=== PATIENT | male | born 1965 | race Caucasian/White ===

== ENCOUNTER 2017-01-18 15:27 | Emergency (ER) | payer SELFPAY ==
[~2017-01-18] VITALS: Ht 165.1 cm; Wt 50.6 kg
[2017-01-18 15:29] VITALS: TEMP 36.7; Ht 165.1 cm; Wt 50.6 kg
[2017-01-18] MEDS ORDERED: HYDROCODONE/ACETAMOPHEN 5/325MG TAB PO STA (15:58)
--- NOTE | 2017-01-18 16:21 | EMERGENCY ROOM VISIT NOTE ---
History First contact with patient: 15:35 Chief Complaint: KNEEPAIN Stated Complaint: LEFT KNEE PAIN FROM A FALL - WEDNESDAY NIGHT History of Present Illness The patient is a 51 year old male who presents to the Emergency Room via private vehicle with complaints of "left knee pain from a fall, Wednesday night". 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 He then twisted, and fell to the ground. He states that most of the twisting occurred at the location of the left knee. He notes the swelling has been progressing as well as the pain. He points to the medial aspect of his left knee as a location of pain that he rates as a 10/10. Pain is worse with extension of his left knee. Pain is also worse with weightbearing. There is minimal pain at rest. He feels that the knee is slightly warm to the touch. He denies any nausea, vomiting, headaches. He did feel that he initially felt feverish and had chills the day that he twisted the knee but these have since subsided. He cannot take ibuprofen secondary to stomach problems. He has taken Tylenol which has not provided any relief. He has also tried ice and hot showers of which have not provided relief. He denies any left hip or ankle pain. Review of Systems A complete 6-point Review of Systems was discussed with the patient, with pertinent positives and negatives listed in the History of Present Illness. All remaining Review of Systems questions can be considered negative unless otherwise specified. Past Medical/Surgical History Foot surgery 1984 Family History Diabetes, high blood pressure. Social History Smoking Status: Current Every Day Smoker Marital Status: single Occupation Status: unemployed Current/Historical Medications Scheduled PRN Hydrocodone/Acetaminophen 5MG/325MG (Sussex 5MG/325MG), 1 TABLET PO Q4H PRN for Pain Allergies Coded Allergies: No Known Allergies (Unverified , 01/18/17) Physical Exam Vital Signs Date Time Temp Pulse Resp B/P (MAP) Pulse Ox O2 Delivery O2 Flow Rate FiO2 01/18/17 17:00 64 18 128/90 97 Room Air 01/18/17 15:29 36.7 74 20 144/90 97 Room Air Physical Exam VITAL SIGNS - Vital signs and nursing notes were reviewed. Patient is afebrile , hypertensive at 144/90, non-tachycardic and saturating well on room air 97%. GENERAL -51-year-old male appearing his stated age who is in no acute distress. Communicates well with provider and answers questions appropriately. SKIN - Without rashes. The skin overlying the left knee is slightly erythematous, and the knee is not edematous. Temperature is symmetric between the knees to palpation. HEAD - NC/AT. EXTREMITIES - No clubbing or peripheral cyanosis. No pretibial edema present. He is neurovascularly intact in the left lower extremity. No tenderness to palpation over the knee joint. There is tenderness elicited with full extension of the knee actively and passively. No tenderness elicited with flexion or varus or valgus stress. The knee joint is the same temperature upon palpation as the other knee joint. Slight erythema noted to the medial aspect. No edema noted. +5/5 strength noted in UE/LE bilaterally. Medical Decision & Procedures ER Provider Diagnostic Interpretation: LEFT KNEE 3 VIEWS CLINICAL HISTORY: Left knee pain status post injury COMPARISON: None. DISCUSSION: No acute fractures are visualized. There is a trace joint effusion. There are mild degenerative changes with mild lateral joint compartment spurring. IMPRESSION: Mild degenerative change. No acute fractures. Electronically signed by: Mitch Iqbal M.D. 01/18/2017 4:26 PM Dictated Date/Time: 01/18/2017 4:26 PM Medications Administered Medications (Trade) Dose Ordered Sig/Claritza Route Start Time Stop Time Status Last Admin Dose Admin Acetaminophen/ Hydrocodone Bitart (Sussex 5/325 Tab) 1 tab NOW STAT PO 01/18/17 15:58 01/18/17 15:59 DC 01/18/17 16:29 1 TAB Medical Decision Patient was seen and evaluated as above. After obtaining a thorough history and physical examination radiograph was obtained of the right knee. Patient would like something for pain therefore was provided with Sussex. Ice packs were provided. The radiograph results as above. Patient presents to us today with pain in the right left status post twisting injury after getting his left knee stuck in the rail road tracks. I do not suspect septic joint. Patient presentation is consistent with that with knee trauma. No fracture was noted to the radiograph. Official results as above. The patient will be referred to orthopedics for further evaluation and management. Knee immobilizer was provided here. He noted he had his own crutches that he would use. He is to remain nonweightbearing until other pain free, or follows up with orthopedics. Short-term prescription for Sussex will be provided. He was educated upon worrisome symptoms which to return, had questions prior to discharge, and was discharged home in good condition. I suspect his knee pain is likely secondary to ligamentous injury. In the evaluation and treatment of this patient, the following differential diagnoses were considered: Patellar Fracture, Tibial Plateau Fracture, Distal Femur Fracture, ACL Injury, PCL Injury, Collateral Ligament Injury, Pes Anserine Bursitis, septic joint, Ma[place]uve Fracture. [facility] Drug Monitoring Program Search Results: patient reviewed within database, no issues identified Impression Primary Impression: Knee pain Departure Information Dispostion Home / Self-Care Condition GOOD Prescriptions Hydrocodone/Acetaminophen 5MG/325MG (Sussex 5MG/325MG) Tab 1 TABLET PO Q4H Y for Pain, #12 TAB For Initial Treatment Prov: Arie Martinez PA-C 01/18/17 Referrals No Doctor, Assigned (PCP) Hood Mead MD Patient Instructions My [facility] Additional Instructions You have been treated in the Emergency Department for Knee Pain. You have received pain medicine in the emergency department which impairs your ability to operate a vehicle. It is illegal for you to drive after receiving these medicines. You have been prescribed NORCO to be used for pain control. This is a narcotic medication. You cannot drive or consume alcohol while on this medicine. This medicine should only be used for pain that cannot be controlled with over-the- counter pain medicines. DO NOT TAKE WITH TYLENOL!! For pain control, you can use the following [id number] medicines (if >12 yo): - Regular strength (325mg/tab) Tylenol (acetaminophen) 2 tabs every 4-6 hours as needed. Do not exceed 12 tablets in a 24 hour period. Avoid taking more than 3 grams 3000 mg) of Tylenol per day. This includes any other sources of acetaminophen you may take on a regular basis. - Regular strength (200 mg/tab) Advil (ibuprofen) 1-2 tabs every 4-6 hours as needed. Do not exceed a dose of 3200 mg per day. If this is a recent injury (<24 hrs), ice can be applied to the area of pain for the first 3 days to help decrease pain and inflammation. Ice massages can be performed by freezing water in a paper cup, peeling back the cup to expose the ice and then massaging over the affected area. You have been provided the number for an Orthopaedic Surgeon. You should call this number as soon as possible to establish a follow-up visit from today's Emergency Department visit. (Dr. Mead) Your blood pressure was found to be 144/90, this is elevated, therefore it is recommended to follow-up with your family doctor for further evaluation and management of potential high blood pressure. Keep the knee brace in place until cleared by Orthopedics. Use the crutches you have been provided to keep ALL weight off of the knee until weight bearing is tolerable. Return to the Emergency Department if your current symptoms worsen despite treatment course outlined above. Problem Qualifiers Primary Impression: Knee pain Chronicity: acute Laterality: left Qualified Codes: M25.562 - Pain in left knee
--- NOTE | 2017-01-18 16:28 | DIAGNOSTIC IMAGING REPORT ---
LEFT KNEE 3 VIEWS CLINICAL HISTORY: Left knee pain status post injury COMPARISON: None. DISCUSSION: No acute fractures are visualized. There is a trace joint effusion. There are mild degenerative changes with mild lateral joint compartment spurring. IMPRESSION: Mild degenerative change. No acute fractures. Electronically signed by: Mitch Iqbal M.D. 01/18/2017 4:26 PM Dictated Date/Time: 01/18/2017 4:26 PM
[2017-01-18] MEDS ORDERED: HYDR-5688 PO (16:54)
[2017-01-18 17:00] VITALS: BP 128/90; PULSE 64; O2SAT 97
== END 2017-01-18 17:00 | disposition home or self-care (01) ==
LOC: C.EDB 15:29 → C.EDD 17:00
DX: M25.562 Pain in left knee (principal); W23.1XXA Caught, crushed, jammed, or pinched between stationary objects, initial encounter; Y92.89 Other specified places as the place of occurrence of the external cause; Z83.3 Family history of diabetes mellitus; Z82.49 Family history of ischemic heart disease and other diseases of the circulatory system; F17.210 Nicotine dependence, cigarettes, uncomplicated

== ENCOUNTER 2024-11-23 09:55 | Observation (INO) ==
--- NOTE | 2024-11-23 10:20 | Emergency Department Note ---
Impression & Plan Numbness on right side, Abnormal brain CT, Hx of Lyme disease, Leukocytosis ED Provider Note NAME: OSEI GEORGE AGE: 59 SEX: M : 1965 ARRIVES VIA: Walk-In INFORMANT: [Patient] ED PROVIDER(S): [Kulwant Jones MD] CHIEF COMPLAINT: Illness HISTORY OF PRESENT ILLNESS: The patient is a 59-year-old male who states that 6 days ago, he was arguing with his girlfriend and suddenly, his entire right side from his scalp to his toes went numb. He states that the numbness has never resolved. The patient did go to the [facility] and had an MRI, he was told that things were okay. The patient states that his symptoms have persisted. Only his fingertips and toes are with normal sensation. The rest of the right side is numb. There is no difficulty with functionality, he does not feel weak in 1 arm or 1 leg. There has been no speech slur, no headache. No cough or cold or congestion. No history of previous CVA, he has in the past been diagnosed with Lyme disease and [place] spotted fever, he was treated with doxycycline. PMHx/PSHx/Social Hx: See Below PHYSICAL EXAM: GENERAL: Patient is in no acute distress. HEENT: No acute trauma, normocephalic atraumatic, mucous membranes moist, no nasal congestion. NECK: No stridor, no adenopathy, no meningismus, trachea is midline. LUNGS: Clear to auscultation bilaterally, no wheeze, no rhonchi, breath sounds equal. HEART: Without murmurs gallops or rubs, regular rate and rhythm. ABDOMEN: Soft, nontender, no peritonitis. EXTREMITIES: No cyanosis, full range of motion of all the joints without pain or difficulty. NEUROLOGIC: Oriented x 3, no acute motor deficit. No extremity drift, no speech slur, no facial droop, no cerebellar dysfunction. SKIN: No jaundice, no diaphoresis. DIFFERENTIAL DIAGNOSIS: Stroke, electrolyte imbalance, intracranial bleeding, tickborne disease, among others. EMERGENCY DEPARTMENT PROCEDURES: MEDICAL DECISION MAKING: There is a mild leukocytosis, this could be consistent with infection or the stress of his presentation. There is a normal hemoglobin and platelet count. No renal failure or significant electrolyte abnormality. No concerning liver enzyme elevation. Total CK was not elevated making rhabdomyolysis unlikely. The patient appeared to be in a euthyroid state. ECG shows a sinus rhythm, no ischemia. Cardiac enzyme testing x 1 is not consistent with acute cardiac injury. Urinalysis does not show findings of infection. Urine drug screen was positive for marijuana. Alcohol level was undetectable. Anaplasmosis and Babesia screens were negative, the send out testing is pending. Preliminary Lyme disease testing was positive however, the secondary test showed findings of previous Lyme disease, not active Lyme disease. Chest x-ray did not show pneumonia or CHF. Brain CT suggested a potential old or subacute infarct. CT angio of the head and neck were performed, there was no significant clot or significant stenosis. On exam, the patient had no focal motor deficits, no speech slur. He complained of numbness to essentially the entire right side of his body. Because of the patient's complaints and because of the abnormal brain CT, an MRI of the brain was ordered with and without contrast. The MRI does show a left- sided subacute thalamic infarct which I suspect is responsible for his right sided numbness. Given his presentation, given the imaging results, further workup for CVA is indicated. A hospital stay is warranted. The patient was given a nicotine patch at his request. In addition, he was given 4 baby aspirin orally. The patient is clearly not a candidate for TNK, his stroke likely occurred a week ago. I did speak with the patient, I spoke with case management, the on-call hospitalist was consulted. At the request of the hospitalist, I spoke briefly with on-call neurology. The neurology phone consult advice was forwarded to the hospitalist. Prior/Outside records/notes reviewed: None ECG per my interpretation: Indication was possible stroke. The ECG shows a normal sinus rhythm with a rate of 80. There is no acute ST elevation. There is a potential old septal infarct. There is a potential old lateral infarct. No PVCs. The QTc is 419. Continuous Cardiac Monitoring per my interpretation: An order was placed for continuous cardiac monitoring. The monitor shows a rate of 94 with normal sinus rhythm. Imaging/x-ray results per my interpretation: Chest x-ray does not show pneumonia, CHF or cardiomegaly. Chronic Medical/Social conditions affecting care: None Care/Management discussed with: Case management, the on-call hospitalist. Neurology on-call-Dr. Panchal. Level of care consideration(s): After review of the information above and other included data: --I believe the patient requires escalation of care to admission Critical Care Note: I have personally spent 49 minutes of critical care time in the direct management of this patient. This includes bedside care, interpretation of diagnostic studies, and testing, discussion with consultants, patient, and family members, and other required patient management activities. This 49 minutes is in excess of all separately billable procedures. DISPOSITION: Admission Past Med/Surg History Problem List (Updated 11/23/24 @ 14:25 by Kulwant Jones MD) Leukocytosis (Acute) Hx of Lyme disease (Acute) Abnormal brain CT (Acute) Numbness on right side (Acute) Knee pain (Acute) Medical History Hx of Lyme disease Social History Smoking Status: Current every day smoker Tobacco Type: Cigarettes Preferred Language: Kyrgyz Feels Safe at Home: Yes Allergies Allergies Allergy/AdvReac Type Severity Reaction Status Date / Time No Known Allergies Allergy Unverified 08/29/20 22:27 Home Meds Home Medications Medication Instructions Recorded Confirmed Vitamin D3 1 cap PO DAILY 11/23/24 11/23/24 albuterol sulfate 90 mcg/actuation 2 puff inhalation Q4 PRN sob 11/23/24 11/23/24 aerosol inhaler aspirin 81 mg tablet,delayed 81 mg PO DAILY 11/23/24 11/23/24 release fluticasone 250 mcg-salmeterol 50 1 inh inhalation BID 11/23/24 11/23/24 mcg/dose blistr powdr for inhalation Results & Data (ED) Vital Signs Vital Signs - 24 hr 11/23/24 09:59 11/23/24 10:05 11/23/24 10:31 Temperature 36.7 C Temperature Source Oral Pulse Rate 94 H 67 Pulse Rate from SpO2 Sensor Respiratory Rate 20 Respiratory Effort / Characteristics Non-Labored Spontaneous Respiratory Depth Normal Respiratory Pattern Regular Blood Pressure 162/82 H Blood Pressure Mean 108 Pulse Oximetry 98 97 Oxygen Delivery Method Room Air Room Air Sepsis Recent Fever Within 48 Hours No Sepsis New/Unexplained Change in Mental Status N/A Sepsis Action Taken by Nursing No Action Required 11/23/24 10:39 11/23/24 11:03 11/23/24 12:21 Temperature Temperature Source Pulse Rate 69 67 65 Pulse Rate from SpO2 Sensor 70 66 65 Respiratory Rate 15 19 16 Respiratory Effort / Characteristics Respiratory Depth Respiratory Pattern Blood Pressure 143/83 H 124/84 153/95 H Blood Pressure Mean 103 97 114 Pulse Oximetry 98 96 98 Oxygen Delivery Method Sepsis Recent Fever Within 48 Hours Sepsis New/Unexplained Change in Mental Status Sepsis Action Taken by Nursing 11/23/24 12:36 Temperature Temperature Source Pulse Rate 83 Pulse Rate from SpO2 Sensor 86 Respiratory Rate 14 Respiratory Effort / Characteristics Respiratory Depth Respiratory Pattern Blood Pressure 153/92 H Blood Pressure Mean 112 Pulse Oximetry 99 Oxygen Delivery Method Sepsis Recent Fever Within 48 Hours Sepsis New/Unexplained Change in Mental Status Sepsis Action Taken by [facility] Medications Current Medication List: was personally reviewed by me Laboratory Data Attestation: I reviewed the patient's lab results. 11/23/24 10:25 11/23/24 10:25 Lab Results 11/23/24 11/23/24 Range/Units 10:25 11:22 WBC 11.69 H (4.8-10.8) K/ul RBC 4.76 (4.70-6.10) M/uL Hgb 15.8 (14.0-18.0) g/dl Hct 44.2 (42.0-52.0) % MCV 92.9 (80.0-100.0) fL MCH 33.2 (25.0-34.0) pg MCHC 35.7 (32.0-36.0) g/dL RDW Std Deviation 43.9 (36.4-46.3) fL RDW Coeff of Abbey 12.9 (11.5-14.5) % Plt Count 214 (130-400) K/uL MPV 10.4 (9.4-12.4) fL Immature Gran % (Auto) 0.6 % Neut % (Auto) 76.7 % Lymph % (Auto) 13.8 % Brewster % (Auto) 6.3 % Eos % (Auto) 1.9 % Baso % (Auto) 0.7 % Neut # (Auto) 8.97 H (1.40-6.50) K/uL Lymph # (Auto) 1.61 (1.20-3.40) K/uL Brewster # (Auto) 0.74 H (0.11-0.59) K/uL Eos # (Auto) 0.22 (0.00-0.50) K/uL Baso # (Auto) 0.08 (0.00-0.20) K/uL Immature Gran # (Auto) 0.07 (0.01-0.20) K/uL Sodium 140 (136-145) mmol/L Potassium 3.9 (3.5-5.1) mmol/L Chloride 109 H (98-107) mmol/L Carbon Dioxide 26 (21-32) mmol/L Anion Gap 5 (3-11) BUN 17 (6-23) mg/dl Creatinine 0.80 (0.6-1.4) mg/dl Est Cr Clr Drug Dosing 83.7 ml/min eGFR 101.95 BUN/Creatinine Ratio 21.3 H (10-20) Glucose 126 H (70-99(Fasting)) mg/dl Calcium 9.2 (8.6-10.3) mg/dl Magnesium 1.8 (1.7-2.4) mg/dl Total Bilirubin 0.4 (0.2-1.0) mg/dl AST 30 (13-39) U/L ALT 37 (7-52) U/L Alkaline Phosphatase 87 (34-104) U/L Total Creatine Kinase 48 (30-223) U/L Troponin I High Sens 3.6 (0-20) pg/ml Total Protein 6.6 (6.0-8.3) gm/dl Albumin 4.1 (3.4-5.0) gm/dl Globulin 2.5 (2.5-4.0) gm/dl Albumin/Globulin Ratio 1.6 (0.9-2) TSH 0.681 (0.300-4.500) uIu/ml Urine Color Yellow Urine Appearance Clear (Clear) Urine pH 6.0 (4.5-7.5) Ur Specific Tyler 1.005 (1.000-1.030) Urine Protein Negative (Negative) Urine Glucose (UA) Negative (Negative) Urine Ketones Negative (Negative) Urine Blood Negative (Negative) Urine Nitrite Negative (Negative) Urine Bilirubin Negative (Negative) Urine Urobilinogen Negative (Negative) Ur Leukocyte Esterase Negative (Negative) Urine Opiates Screen Neg (Neg) Ur Methadone, Qual Neg (Neg) Urine Fentanyl Screen Neg (Neg) Urine Barbiturates Neg (Neg) Ur Phencyclidine (PCP) Neg (Neg) U Amphetamin/Meth Scrn Neg (Neg) MDMA (Ecstasy) Screen Neg (Neg) U Benzodiazepines Scrn Neg (Neg) Ur Cocaine Metabolite Neg (Neg) U Marijuana (THC) Screen Pos H (Neg) Ethyl Alcohol mg/dL < 10.0 (<10.0) mg/dl Anaplasma Smear See Comment Babesia Smear See Comment Lyme Disease Screen Positive H (Negative) Lyme Tier 2 IgG Confirm Positive H (Negative) Lyme Tier 2 IgM Confirm Negative (Negative) Administered Medications Discontinued Medications Gadobutrol (Gadobutrol 65ml Vial) 6 ml IV ONCE ONE Stop: 11/23/24 14:18 Last Admin: 11/23/24 14:18 Dose: 6 ml Documented By: CARA Ioversol (Optiray 320 125ml) 119 ml IV ONCE ONE Stop: 11/23/24 11:39 Last Admin: 11/23/24 11:38 Dose: 119 ml Documented By: Imaging Data Radiologist's Impression: Chest X-Ray 11/23/24 10:05 XR chest 1V portable CLINICAL HISTORY: weakness COMPARISON STUDY: 1 4424.1 FINDINGS: Heart size and pulmonary vasculature are normal. No effusion, consolidation, or pneumothorax. There are old bilateral rib fractures. IMPRESSION: No acute findings. ACT 112: Negative or not required by law. Electronically signed by: Jamir Mcgee M.D. 11/23/2024 10:[address] 11/23/24 10:16 CT head/brain wo con CLINICAL HISTORY: stroke. TECHNIQUE: Multiple axial CT images of the head were obtained without contrast. A dose lowering technique was utilized adhering to the principles of ALARA. COMPARISON: None FINDINGS: No intracranial hemorrhage seen. No mass effect, midline shift, or hydrocephalus. There is a small nonspecific area of hypodensity at the left thalamus, likely infarction of uncertain chronicity. No skull fracture seen. There is a mucous retention cyst in the right maxillary sinus and there is mild paranasal sinus mucosal thickening. IMPRESSION: 1. No intracranial hemorrhage seen. 2. Likely small infarction at the left thalamus of uncertain chronicity, possibly old. ACT 112: Negative or not required by law. The above report was generated using voice recognition software. It may contain grammatical, syntax or spelling errors. Electronically signed by: Jamir Mcgee M.D. 11/23/2024 11:47 AM Head CTA 11/23/24 10:16 CTA ANGIOGRAPHY OF THE HEAD CLINICAL HISTORY: Stroke. COMPARISON STUDY: No previous studies for comparison. TECHNIQUE: Helical axial images of the head were obtained following uneventful intravenous administration of 119 cc of Optiray. Sagittal and coronal reconstructions were viewed as well as maximal intensity projections on an independent 3-D workstation. Automated exposure control was utilized for the study. A dose lowering technique was utilized adhering to the principles of ALARA. FINDINGS: Please note that the head CT will be reported separately. No acute intracranial hemorrhage, midline shift or mass effect is present. Ventricular system is unremarkable. A 9 mm hypodense focus within the left thalamus is noted as well as a hypodensity within the adjacent portion of the internal capsule. The bilateral M1, M2, A1 and A2 segments are patent. There is no intracranial aneurysm. The posterior circulation is intact. The left vertebral artery is dominant. Basilar arteries are patent. The posterior cerebral arteries are patent. IMPRESSION: 1. No large vessel occlusion. No intracranial aneurysm. 2. Age indeterminate 9 mm infarct within the left thalamus. Subtle hypodensity within the adjacent posterior limb of the left internal capsule which is also age-indeterminate. ACT 112: Negative or not required by law. Electronically signed by: Manpreet Whitman M.D. 11/23/2024 11:57 AM Neck CTA 11/23/24 10:16 CT angio neck with con CLINICAL HISTORY: 59 years-old Male with stroke. Acute stroke like symptoms COMPARISON STUDY: CT abdomen same day TECHNIQUE: Following the IV administration of 119 mL of Optiray, CT angiogram of the neck was performed from the aortic arch to the skull base. Images are reviewed in the axial, sagittal, and coronal planes. 3-D MIPS images are created and assessed. IV contrast was administered without complication. All measurements were calculated based on NASCET criteria. A dose lowering technique was utilized adhering to the principles of ALARA. CT DOSE: 1070.48 mGy.cm FINDINGS: Atherosclerosis of the thoracic aortic arch. There is mild stenosis at the origin of the left subclavian artery. The innominate and right subclavian arteries are patent. Mild narrowing of the distal common carotid artery secondary to atheromatous plaque. There is atherosclerotic plaque of the right greater than left carotid bulbs causing less than 50% stenosis. The internal carotid arteries are patent. Dominant left vertebral artery is widely patent. The developmentally diminutive right vertebral artery is also patent. The lung apices appear to be clear. No pneumothorax. Unremarkable soft tissues. 2.5 cm right maxillary sinus polyp. There is mild mucosal thickening of the paranasal sinuses. No change of the cervical spine. No acute fracture. Mild superior endplate compression T4 is likely chronic. IMPRESSION:CTA of the neck demonstrates no aneurysm, dissection, high-grade stenosis or arterial occlusion. ACT 112: Negative or not required by law. The above report was generated using voice recognition software. It may contain grammatical, syntax or spelling errors. Electronically signed by: Florencio Krishnamurthy M.D. 11/23/2024 12:12 PM Brain MRI 11/23/24 12:26 MR brain wo/w con HISTORY: 59 years-old Male poss stroke acute stroke like symptoms with right- sided numbness COMPARISON: Head CT of same day TECHNIQUE: Multiple and multisequence MRI of the brain was obtained with and without IV contrast FINDINGS: Confirmation of the acute to subacute appearing subcentimeter lacunar infarct in the left thalamus measuring approximately 7 x 9 x 6 mm which demonstrates increased signal on the diffusion weighted images and intermediate signal on the ADC map. No acute or subacute territorial infarct. Midline structures appear unremarkable. Partially empty sella. Degenerative changes of the cervical spine. There are a few punctate scattered foci of T2/FLAIR prolongation within the white matter, likely representing underlying mild chronic microvascular ischemic disease. There are a few small subcentimeter benign subcortical cysts noted within the anterior right temporal lobe. No abnormal enhancement. No acute intracranial hemorrhage, midline shift, abnormal extra-axial collection, hydrocephalus or intra-axial mass. Study is mildly motion degraded. Cerebral venous sinuses and major arterial flow voids appear patent. Skull, orbits and soft tissues are unremarkable. Trace mastoid effusions. Mild mucosal thickening of the paranasal sinuses. 2.8 cm focus of polypoid mucosal thickening within the right maxillary sinus. IMPRESSION: 1. Confirmation of the acute to subacute appearing subcentimeter lacunar infarct within the left thalamus. 2. No abnormal enhancement. ACT 112: Negative or not required by law. The above report was generated using voice recognition software. It may contain grammatical, syntax or spelling errors. Electronically signed by: Florencio Krishnamurthy M.D. 11/23/2024 2:50 PM Discharge Plan Visit Data Chief Complaint: Illness Stated Complaint: NUMBNESS ON ENTIRE R SIDE, HIGH BP ED Provider: Kulwant Jones Discharge Problem: Numbness on right side, Abnormal brain CT, Hx of Lyme disease, Leukocytosis Patient Disposition: Admitted As Inpatient Condition: Fair Forms Stand Alone Forms: My [facility] [employer] Prescriptions Prescriptions: No Action fluticasone propion-salmeterol 250-50 mcg/dose blister with device 1 inh INHALATION BID aspirin [Aspir-81] 81 mg Tablet,Delayed Release (Dr/Ec) 81 mg PO DAILY albuterol sulfate 90 mcg/actuation HFA aerosol inhaler 2 puff INHALATION Q4 PRN (Reason: sob) Vitamin D3 1 cap PO DAILY Rx Instructions: otc unknown dose Referrals Referrals: PCP,NO [Physician] - Discharge Problem: Leukocytosis Qualifiers: Leukocytosis type: unspecified Qualified Code(s): D72.829 - Elevated white blood cell count, unspecified
--- NOTE | 2024-11-23 10:50 | XRay Report ---
XR chest 1V portable CLINICAL HISTORY: weakness COMPARISON STUDY: 1 8740.1 FINDINGS: Heart size and pulmonary vasculature are normal. No effusion, consolidation, or pneumothora x. There are old bilateral rib fractures. IMPRESSION: No acute findings. ACT 112: Negative or not required by law. Electronically signed by: Jamir Mcgee M.D. 11/23/2024 10:49 AM
[2024-11-23 10:53] LABS: Basophils # (auto) 0.08 K/uL (0.00-0.20); Basophils % (auto) 0.7 %; Eosinophils # (auto) 0.22 K/uL (0.00-0.50); Eosinophils % (auto) 1.9 %; Hematocrit (blood only) 44.2 % (42.0-52.0); Hemoglobin 15.8 g/dl (14.0-18.0); Immature Granulocytes # (auto) 0.07 K/uL (0.01-0.20); Immature Granulocytes % (auto) 0.6 %; Lymphocytes # (auto) 1.61 K/uL (1.20-3.40); Lymphocytes % (auto) 13.8 %; Mean Corpuscular Hemoglobin 33.2 pg (25.0-34.0); Mean Corpuscular Hgb Conc 35.7 g/dL (32.0-36.0); Mean Corpuscular Volume 92.9 fL (80.0-100.0); Mean Platelet Volume 10.4 fL (9.4-12.4); Monocytes # (auto) 0.74 K/uL (0.11-0.59); Monocytes % (auto) 6.3 %; Neutrophils # (auto) 8.97 K/uL (1.40-6.50); Neutrophils % (auto) 76.7 %; Platelet Count 214 K/uL (130-400); RDW Coefficient of Variation 12.9 % (11.5-14.5); RDW Standard Deviation 43.9 fL (36.4-46.3); Red Blood Count 4.76 M/uL (4.70-6.10); White Blood Count 11.69 K/ul (4.8-10.8)
--- NOTE | 2024-11-23 10:57 | Electrocardiogram Report ---
Test Reason : Blood Pressure : */* mmHG Vent. Rate : 80 BPM Atrial Rate : 80 BPM P-R Int : 150 ms QRS Dur : 86 ms QT Int : 364 ms P-R-T Axes : 79 46 63 degrees QTcB Int : 419 ms Normal sinus rhythm Minimal voltage criteria for LVH, may be normal variant Septal infarct , age undetermined Abnormal ECG No previous ECGs available Confirmed by Michael Mckeon ([id number]) on 11/23/2024 10:57:34 AM Referred By: Confirmed By: Michael Mckeon
[2024-11-23 11:16] LABS: Albumin Globulin Ratio 1.6 (0.9-2); Albumin Level 4.1 gm/dl (3.4-5.0); BUN Creatinine Ratio 21.3 (10-20); Bilirubin,Total 0.4 mg/dl (0.2-1.0); Calcium 9.2 mg/dl (8.6-10.3); Creatinine Clr Calc Pharmacy 83.7 ml/min; Globulin 2.5 gm/dl (2.5-4.0); Magnesium 1.8 mg/dl (1.7-2.4); Potassium 3.9 mmol/L (3.5-5.1); Total Protein 6.6 gm/dl (6.0-8.3)
[2024-11-23 11:20] LABS: Troponin I High Sensitivity 3.6 pg/ml (0-20)
[2024-11-23 11:30] LABS: Thyroid Stimulating Hormone 0.681 uIu/ml (0.300-4.500)
[2024-11-23 11:33] LABS: Appearance Urine Clear (Clear); Bilirubin Urine Negative (Negative); Blood Urine Negative (Negative); Color Urine Yellow; Glucose Urine UA Negative (Negative); Ketones Urine Negative (Negative); Leukocyte Esterase Urine Negative (Negative); Nitrite Urine Negative (Negative); Protein Urine Negative (Negative); Specific Gravity Urine 1.005 (1.000-1.030); Urobilinogen Urine Negative (Negative)
[2024-11-23] MEDS: OPTIRAY 320 125ml IV ONE (11:38)
--- NOTE | 2024-11-23 11:49 | CT Scan Report ---
CT head/brain wo con CLINICAL HISTORY: stroke. TECHNIQUE: Multiple axial CT images of the head were obtained without contrast. A dose lowering tech nique was utilized adhering to the principles of ALARA. COMPARISON: None FINDINGS: No intracranial hemorrhage seen. No mass effect, midline shift, or hydrocephalus. There is a small nonspecific area of hypodensity at the left thalamus, likely infarction of uncertain chronici ty. No skull fracture seen. There is a mucous retention cyst in the right maxillary sinus and there i s mild paranasal sinus mucosal thickening. IMPRESSION: 1. No intracranial hemorrhage seen. 2. Likely small infarction at the left thalamus of uncertain chronicity, possibly old. ACT 112: Negative or not required by law. The above report was generated using voice recognition software. It may contain grammatical, syntax o r spelling errors. Electronically signed by: Jamir Mcgee M.D. 11/23/2024 11:47 AM
[2024-11-23 11:57] LABS: Lyme Screen Rflx Confirmation Positive (Negative)
--- NOTE | 2024-11-23 11:58 | CT Scan Report ---
CTA ANGIOGRAPHY OF THE HEAD CLINICAL HISTORY: Stroke. COMPARISON STUDY: No previous studies for comparison. TECHNIQUE: Helical axial images of the head were obtained following uneventful intravenous administr ation of 119 cc of Optiray. Sagittal and coronal reconstructions were viewed as well as maximal inten sity projections on an independent 3-D workstation. Automated exposure control was utilized for the study. A dose lowering technique was utilized adhering to the principles of ALARA. FINDINGS: Please note that the head CT will be reported separately. No acute intracranial hemorrhage, midline shift or mass effect is present. Ventricular system is unremarkable. A 9 mm hypodense focus within the left thalamus is noted as well as a hypodensity within the adjacent portion of the interna l capsule. The bilateral M1, M2, A1 and A2 segments are patent. There is no intracranial aneurysm. Th e posterior circulation is intact. The left vertebral artery is dominant. Basilar arteries are patent . The posterior cerebral arteries are patent. IMPRESSION: 1. No large vessel occlusion. No intracranial aneurysm. 2. Age indeterminate 9 mm infarct within the left thalamus. Subtle hypodensity within the adjacent po sterior limb of the left internal capsule which is also age-indeterminate. ACT 112: Negative or not required by law. Electronically signed by: Manpreet Whitman M.D. 11/23/2024 11:57 AM
--- NOTE | 2024-11-23 12:14 | CT Scan Report ---
CT angio neck with con CLINICAL HISTORY: 59 years-old Male with stroke. Acute stroke like symptoms COMPARISON STUDY: CT abdomen same day TECHNIQUE: Following the IV administration of 119 mL of Optiray, CT angiogram of the neck was perform ed from the aortic arch to the skull base. Images are reviewed in the axial, sagittal, and coronal pl anes. 3-D MIPS images are created and assessed. IV contrast was administered without complication. Al l measurements were calculated based on NASCET criteria. A dose lowering technique was utilized adhe ring to the principles of ALARA. CT DOSE: 1070.48 mGy.cm FINDINGS: Atherosclerosis of the thoracic aortic arch. There is mild stenosis at the origin of the left subclav rea artery. The innominate and right subclavian arteries are patent. Mild narrowing of the distal com mon carotid artery secondary to atheromatous plaque. There is atherosclerotic plaque of the right gre ater than left carotid bulbs causing less than 50% stenosis. The internal carotid arteries are patent . Dominant left vertebral artery is widely patent. The developmentally diminutive right vertebral art katelynn is also patent. The lung apices appear to be clear. No pneumothorax. Unremarkable soft tissues. 2.5 cm right maxillar y sinus polyp. There is mild mucosal thickening of the paranasal sinuses. No change of the cervical s pine. No acute fracture. Mild superior endplate compression T4 is likely chronic. IMPRESSION:CTA of the neck demonstrates no aneurysm, dissection, high-grade stenosis or arterial occl usion. ACT 112: Negative or not required by law. The above report was generated using voice recognition software. It may contain grammatical, syntax o r spelling errors. Electronically signed by: Florencio Krishnamurthy M.D. 11/23/2024 12:12 PM
[2024-11-23 12:17] LABS: Amphetamines+Metham, Urine Neg (Neg); Barbiturates, Urine Neg (Neg); Benzodiazepine, Urine Neg (Neg); Cocaine, Urine Neg (Neg); Fentanyl, Urine Neg (Neg); MDMA (Ecstacy), Urine Neg (Neg); Marijuana, Urine Pos (Neg); Methadone, Urine Neg (Neg); Opiate, Urine Neg (Neg); Phencyclidine, Urine Neg (Neg)
[2024-11-23 12:40] LABS: Lyme Ab IgG 2nd Tier Confirm Positive (Negative); Lyme Ab IgM 2nd Tier Confirm Negative (Negative)
[2024-11-23] MEDS: GADOBUTROL 65ML VIAL IV ONE (14:18)
--- NOTE | 2024-11-23 14:52 | Magnetic Resonance Report ---
MR brain wo/w con HISTORY: 59 years-old Male poss stroke acute stroke like symptoms with right-sided numbness COMPARISON: Head CT of same day TECHNIQUE: Multiple and multisequence MRI of the brain was obtained with and without IV contrast FINDINGS: Confirmation of the acute to subacute appearing subcentimeter lacunar infarct in the left thalamus me asuring approximately 7 x 9 x 6 mm which demonstrates increased signal on the diffusion weighted imag es and intermediate signal on the ADC map. No acute or subacute territorial infarct. Midline structur es appear unremarkable. Partially empty sella. Degenerative changes of the cervical spine. There are a few punctate scattered foci of T2/FLAIR prolongation within the white matter, likely representing u nderlying mild chronic microvascular ischemic disease. There are a few small subcentimeter benign sub cortical cysts noted within the anterior right temporal lobe. No abnormal enhancement. No acute intracranial hemorrhage, midline shift, abnormal extra-axial collection, hydrocephalus or in tra-axial mass. Study is mildly motion degraded. Cerebral venous sinuses and major arterial flow void s appear patent. Skull, orbits and soft tissues are unremarkable. Trace mastoid effusions. Mild mucos al thickening of the paranasal sinuses. 2.8 cm focus of polypoid mucosal thickening within the right maxillary sinus. IMPRESSION: 1. Confirmation of the acute to subacute appearing subcentimeter lacunar infarct within the left thal amus. 2. No abnormal enhancement. ACT 112: Negative or not required by law. The above report was generated using voice recognition software. It may contain grammatical, syntax o r spelling errors. Electronically signed by: Florencio Krishnamurthy M.D. 11/23/2024 2:50 PM
[2024-11-23] MEDS ORDERED: PHARMACIST DISCHARGE MED REC CONSULT PRN (15:25)
[2024-11-23] MEDS ORDERED: ACETAMINOPHEN 325 MG TAB PO PRN (15:29)
[2024-11-23] MEDS: NICOTINE 21 MG/24 HR TDSY TD STA (15:43)
[2024-11-23] MEDS: ASPIRIN CHEW 324 MG PO STA (15:43)
[2024-11-23] MEDS: CLOPIDOGREL BISULFATE 300 MG TAB PO ONE (15:43)
--- NOTE | 2024-11-23 16:12 | History & Physical Report ---
Date of Service November 23, 2024 Assessment & Plan (1) Acute stroke due to ischemia: Plan: Assessment: 1. Acute to subacute stroke. His symptoms have been approximately 1 week. Already showing up on CAT scan. This is probably a subacute left thalamic infarct experienced approximately 1 week ago. Neurology consulted. Dual antiplatelet therapy in the form of Plavix and aspirin. Echocardiogram. MRI is already completed. PT and OT consultation. High-dose statin therapy in the form of Lipitor. Telemetry monitoring to monitor for paroxysmal A-fib. He has no history of A-fib. Stroke protocol. 2. Positive Lyme screen. The patient was diagnosed with Lyme disease and [place] spotted fever per him in September of this year. He was treated with a 21- day course of doxycycline. He completed that course. I spoke with infectious disease Dr. Villar -at this point she is recommending not ongoing treatment as the IgM can stay positive for quite some time. 3. Tobacco abuse in the form of smoking cigarettes. No nicotine patch due to possible vasoconstriction with a acute stroke. 4. Alcoholism. 6-8 beers per day. Last drink was last evening. He has gone through withdrawal before with "the shakes" but never had seizures. We have ordered alcohol withdrawal protocol. He prefers not to take Ativan unless absolutely necessary as it "knocks him out". 5. COPD without acute exacerbation. Continue home inhalers. 6. History of fatty liver probably secondary to chronic alcohol use/abuse. 7. Recreational marijuana use. Plan: As discussed above. Please refer to orders for further planning. History of Present Illness Chief Complaint: Paresthesias right side of body x 1 week. Primary Care Provider: Ruthy Abarca This is a 59-year-old male who apparently was having a verbal altercation with his significant other approximately a week ago. He had a sudden acute onset of paresthesias and numbness of the right side of his body including upper and lower extremity. Per the patient he presented to [facility] emergency department. Per the patient he initially reported an MRI once his mother presented to the ER today it was concluded that the patient probably had a CT of the head a week ago at the [facility] which was negative. According to the patient he "got pissed off and left". He states that they told him they could not find his problem. We have requested to obtain records from the [facility] to determine what was done and what the recommendations were precisely. At any rate, the patient symptomatology has not worsened and has not improved. Therefore he is presented to the [facility] ER for further evaluation and treatment today. CTAs of the head and neck were negative for critical stenosis or thrombosis. CT of the brain was suspicious for a subacute infarct in the left thalamus. MRI of the brain in the ER confirmed a subacute infarct. The patient received aspirin in the ER. We requested consultation with neurology. They are recommending dual antiplatelet therapy which has been initiated with Plavix and aspirin as well as high-dose statin therapy. Will obtain a echocardiogram. Lipid panel. PT and OT consultation and neurology consultation. Patient will be on the stroke protocol. In addition the patient tested positive in September for Lyme disease and [place] spotted fever. Per the patient he took a 21-day course of doxycycline. The patient was retested for Lyme disease in the ER today his Lyme screen was positive with a positive IgM. I have contacted infectious disease on-call and spoke with Dr. Villar -at this time she is not recommending any further antimicrobial therapy for possible Lyme disease as the IgM can stay positive for quite some time. In addition the nicotine patch was initially ordered for the patient. The ER with discussed with the patient that nicotine is a vasoconstrictor and would be relatively contraindicated with a subacute stroke that could possibly make things worse and we will discontinue that and the patient voices understanding. In addition the patient drinks 6-8 beers per day. His last drink was last evening. His alcohol level today is 0. He states that he has "had the shakes" before when not drinking but never had any withdrawal seizures. We have ordered alcohol withdrawal protocol. He states that Ativan "knocks him out" and prefers not to take that. Past medical history: COPD, Lyme disease, [place] spotted fever, fatty liver disease. Past surgical history: Bunionectomy, tonsillectomy adenoidectomy, tooth extraction. Social history: The patient lives with his girlfriend. Smokes a pack and a half of cigarettes per day. Drinks 6-8 beers per day last drink was last evening. He also uses recreational marijuana. He is self-employed as a executor of estate. Family medical history: Positive for cerebrovascular disease. Allergies Allergy/AdvReac Type Severity Reaction Status Date / Time No Known Allergies Allergy Unverified 08/29/20 22:27 Home Medications Medication Instructions Recorded Confirmed Type Vitamin D3 1 cap PO DAILY 11/23/24 11/23/24 History albuterol sulfate 90 mcg/actuation 2 puff inhalation Q4 PRN sob 11/23/24 11/23/24 History aerosol inhaler aspirin 81 mg tablet,delayed 81 mg PO DAILY 11/23/24 11/23/24 History release fluticasone 250 mcg-salmeterol 50 1 inh inhalation BID 11/23/24 11/23/24 History mcg/dose blistr powdr for inhalation Past Med/Surg History Problem List (Updated 11/23/24 @ 16:09 by Arnie Dsouza, PhD, DO) Acute stroke due to ischemia Leukocytosis (Acute) Hx of Lyme disease (Acute) Abnormal brain CT (Acute) Numbness on right side (Acute) Knee pain (Acute) Medical History Hx of Lyme disease Social History Smoking Status: Current every day smoker Tobacco Type: Cigarettes Preferred Language: Bur[place]ian Feels Safe at Home: Yes Review of Systems Review of Systems: A 10 point review of system was obtained and unless otherwise stated here or in history of present illness are negative and noncontributory to chief complaint. Physical Exam Physical Exam: In General: In general 59-year-old male is alert and oriented x 3 at the time of my exam. He is accompanied by his mother who is a retired registered nurse. He did patricia permission for his mother to be present during my interview and exam. HEENT: Normocephalic atraumatic pupils are equal round and reactive to light bilaterally. No scleral icterus no conjunctival injection external auditory canals are patent septum is in the midline nose is without discharge oral mucosa is pink and moist without lesion. His tongue protrudes in the midline. He is edentulous. NECK: Supple no rigidity no lymphadenopathy no thyromegaly no carotid bruits no JVD no masses. HEART: Regular rate and rhythm I do not appreciate any ectopy or rub. No murmur. LUNGS: Clear to auscultation bilaterally and anteriorly with no evidence of adventitious sounds/wheezes rales or rhonchi. ABDOMEN: Soft nontender, no rebound, no peritoneal signs, positive bowel sounds, no appreciable organomegaly. EXTREMITIES: Intact, no peripheral cyanosis, clubbing or edema. Strength is 5 out of 5 in extremities x4, no pathological reflexes. No pronator drift. No cerebellar sign. He does have decreased sensation of the right upper and lower extremities compared to the contralateral limbs. NEUROLOGICAL: Other than the decrease sensation as described above, cranial nerves II through XII are grossly intact with no focal deficit elicited upon examination. No tremor. Results & Data Results & Data Vital Signs (Past 12 Hours) Vital Signs Temp Pulse Resp BP Pulse Ox O2 Del Method 11/23/24 14:54 70 15 158/84 H 98 11/23/24 12:36 83 14 153/92 H 99 11/23/24 12:21 65 16 153/95 H 98 11/23/24 11:03 67 19 124/84 96 11/23/24 10:39 69 15 143/83 H 98 11/23/24 10:31 67 11/23/24 10:05 97 Room Air 11/23/24 09:59 36.7 C 94 H 20 162/82 H 98 Room Air Code Status & VTE Plan Code Status Full code. I personally discussed with patient today VTE Prophylaxis Plan VTE Prophylaxis will be ordered: Yes PG Care Time/CCT Total # of Minutes Spent Total Time Spent with Patient: Total time spent is greater than 50% in coordination of care (as documented) at patient's floor/unit and/or counseling patient: Coding Level of Care Code 22082 INT INP/OBS CARE 3/75MIN Diagnoses Acute stroke due to ischemia I63.9
[2024-11-23] MEDS: FOLIC ACID 1 MG TAB PO STA (16:36)
[2024-11-23] MEDS: THIAMINE HCL 100 MG TAB PO STA (16:36)
[2024-11-23] MEDS: ATORVASTATIN 40 MG TAB PO STA (17:09)
--- NOTE | 2024-11-23 17:27 | Neurology Consultation ---
Date of Consultation November 23, 2024 Assessment & Plan (1) Acute stroke due to ischemia: Plan 59-year-old male presenting with an acute ischemic left thalamic infarct, presenting with right sided numbness, mild clumsiness for the right hand, symptoms began acutely [address] angiography of the head and neck unremarkable. Patient has a longstanding history of tobacco abuse, more than 1 pack/day for many years. He is currently modestly hypertensive in the context of his acute stroke. No prior history of stroke or TIA. Would recommend dual antiplatelet therapy, aspirin 81 mg/day, clopidogrel 75 mg/day for 3 weeks, followed by transition to aspirin monotherapy. Agree with atorvastatin as ordered. Goal LDL 70 or less. Blood pressure management per stroke protocol. May require an antihypertensive at time of discharge. Tobacco cessation counseling. Patient will need to follow-up with his PCP for ongoing management of cardiovascular risk factors. Would obtain an echocardiogram with bubble study. Consider obtaining 30-day mobile cardiac outpatient telemetry. However, patient's stroke does not appear to be consistent with a cardioembolic etiology. Consultations with PT/OT. Please call with any questions. History of Present Illness Reason for Consultation: stroke Requesting Physician: Meet History of Present Illness The patient is a 59-year-old male with a chief complaint of right-sided numbness that began acutely 6 days ago while having an argument with his significant other. The numbness involves the right side of the face, right upper and lower limbs. There is a subtle feeling of clumsiness for the right hand, no gross weakness for the right arm or leg. No significant change in speech, no associated vision disturbance, no difficulty swallowing. He was assessed at the [facility] emergency department before deciding to present to [facility] for further evaluation. He denies any previous history of stroke or TIA. He is a long-term smoker, more than 1 pack of cigarettes per day. He also endorses heavy alcohol consumption, at least 6-8 drinks per day. He has had several DUIs and does not drive. I evaluated the patient with his mother present at bedside. A CT of the head revealed an age-indeterminate left thalamic infarct. A CTA of the head and neck were unremarkable. Brain MRI reveals an acute left thalamic infarct. Allergies Allergy/AdvReac Type Severity Reaction Status Date / Time No Known Allergies Allergy Unverified 08/29/20 22:27 Home Medications Medication Instructions Recorded Confirmed Type Vitamin D3 1 cap PO DAILY 11/23/24 11/23/24 History albuterol sulfate 90 mcg/actuation 2 puff inhalation Q4 PRN sob 11/23/24 11/23/24 History aerosol inhaler aspirin 81 mg tablet,delayed 81 mg PO DAILY 11/23/24 11/23/24 History release fluticasone 250 mcg-salmeterol 50 1 inh inhalation BID 11/23/24 11/23/24 History mcg/dose blistr powdr for inhalation Patient History Medical History Hx of Lyme disease Social History Smoking Status: Current every day smoker Tobacco Type: Cigarettes Preferred Language: Mongolian Feels Safe at Home: Yes Review of Systems Constitutional: no fever and no chills Eyes: no blind spots and no diplopia Ear, Nose, Mouth, Throat: no hearing loss Respiratory: + dyspnea Cardiovascular: no chest pain and no palpitations Gastrointestinal: no nausea and no vomiting Genitourinary: no dysuria Musculoskeletal: no myalgia Integumentary: no rash and no lesions Neurologic: + localized weakness and + loss of sensa tion; no gait abnormality, no headache(s), no abnormal speech, no confusion and no memory loss Psychiatric: no depression and no anxiety Exam (Neuro) Constitutional: well developed and well nourished; no acute distress Eyes: normal visual mackenzie by confrontation, PERRL and EOM intact bilaterally; no nystagmus Neurologic: Oriented to:: Person, Place and Time Memory: Short Term Intact and Remote Intact Attention: Span Intact and Concentration Intact Speech Fluency: negative Dysarthria or Dysfluency Speech Aphasia: negative Aphasia Fund of Knowledge: Current Events, Past History and Vocabulary Cranial Nerves: Normal II, III, IV, , V, VIII, IX, X, XI and XII; Abnorm VII (mild right lower facial droop) Motor Strength: Normal Lower Extremities, Normal Upper Extremities and Pronator Drift Laterality: Right Motor Tone: Normal Lower Extremities and Normal Upper Extremities Muscle Bulk/Involuntary Movements: No Involuntary Movements; negative Muscle Atrophy Sensation: Proprioception Intact; negative Light Touch Intact, Pain/Temperature Intact or Vibration Intact Coordination: Finger-Nose Abnormal Laterality: Right; negative Dysdiadochokinesia or Heel-Riggs Abnormal Deep Tendon Reflexes: Rt Triceps: 2+, Lt Triceps: 2+, Rt Biceps: 2+, Lt Biceps: 2+, Rt Brachioradialis: 2+, Lt Brachioradialis: 2+, Rt Patellar: 2+, Lt Patellar: 2+, Rt Ankle: 2+ and Lt Ankle: 2+ Special Tests: Babinski Present Results & Data Vital Signs (Past 12 Hours) Vital Signs Temp Pulse Pulse Resp BP BP Pulse Ox 11/23/24 17:00 53 L 20 169/80 H 97 11/23/24 15:34 60 20 148/89 H 97 11/23/24 15:34 98 11/23/24 14:54 70 15 158/84 H 98 11/23/24 12:36 83 14 153/92 H 99 11/23/24 12:21 65 16 153/95 H 98 11/23/24 11:03 67 19 124/84 96 11/23/24 10:39 69 15 143/83 H 98 11/23/24 10:31 67 11/23/24 10:05 97 11/23/24 09:59 36.7 C 94 H 20 162/82 H 98 O2 Del Method 11/23/24 17:00 Room Air 11/23/24 15:34 Room Air 11/23/24 15:34 Room Air 11/23/24 14:54 11/23/24 12:36 11/23/24 12:21 11/23/24 11:03 11/23/24 10:39 11/23/24 10:31 11/23/24 10:05 Room Air 11/23/24 09:59 Room Air Laboratory Results WBC 11.69, hemoglobin 15.8, hematocrit 44.2, platelet count 214, sodium 140, potassium 3.9, BUN 17, creatinine 0.80, glucose 126, calcium 9.2, magnesium 1.8, AST 30, ALT 37, TSH 0.681, urine tox screen positive for marijuana, Lyme screen positive Diagnostic Findings ECG, normal sinus rhythm, 80 bpm Coding Level of Care Code 57408 INT INP/OBS CARE 3/75MIN Diagnoses Acute stroke due to ischemia I63.9 Time Spent (min) 80 Comment Total time includes patient contact, chart review, counseling, note preparation
[2024-11-23] MEDS ORDERED: ALBUTEROL HFA 8 GM INHALER INH PRN (18:43)
[2024-11-23] MEDS: FLUTICASONE/VILANTEROL 100/25MCG 14 PUFFS/INHALER INH SCH (21:54)
[2024-11-24 06:41] LABS: Basophils # (auto) 0.09 K/uL (0.00-0.20); Basophils % (auto) 0.7 %; Eosinophils % (auto) 5.8 %; Hematocrit (blood only) 46.8 % (42.0-52.0); Hemoglobin 16.6 g/dl (14.0-18.0); Immature Granulocytes # (auto) 0.08 K/uL (0.01-0.20); Immature Granulocytes % (auto) 0.7 %; Lymphocytes % (auto) 20.6 %; Mean Corpuscular Hemoglobin 32.6 pg (25.0-34.0); Mean Corpuscular Hgb Conc 35.5 g/dL (32.0-36.0); Mean Corpuscular Volume 91.9 fL (80.0-100.0); Mean Platelet Volume 10.2 fL (9.4-12.4); Monocytes # (auto) 1.06 K/uL (0.11-0.59); Monocytes % (auto) 8.7 %; Neutrophils # (auto) 7.73 K/uL (1.40-6.50); Neutrophils % (auto) 63.5 %; Platelet Count 223 K/uL (130-400); RDW Coefficient of Variation 13.2 % (11.5-14.5); RDW Standard Deviation 44.2 fL (36.4-46.3); Red Blood Count 5.09 M/uL (4.70-6.10); White Blood Count 12.16 K/ul (4.8-10.8)
[2024-11-24 07:01] LABS: Albumin Globulin Ratio 1.5 (0.9-2); Albumin Level 4.1 gm/dl (3.4-5.0); BUN Creatinine Ratio 20.4 (10-20); Bilirubin,Total 0.7 mg/dl (0.2-1.0); Calcium 9.3 mg/dl (8.6-10.3); Chol HDL Ratio 2.8 (0-5); Globulin 2.8 gm/dl (2.5-4.0); Magnesium 2.1 mg/dl (1.7-2.4); Potassium 4.3 mmol/L (3.5-5.1); Total Protein 6.9 gm/dl (6.0-8.3)
[2024-11-24 07:15] LABS: Thyroid Stimulating Hormone 1.495 uIu/ml (0.300-4.500)
[2024-11-24 07:48] VITALS: RESP 20
[2024-11-24] MEDS: ATORVASTATIN 40 MG TAB PO SCH (08:06)
[2024-11-24] MEDS: CLOPIDOGREL BISULFATE 75 MG TAB PO SCH (08:06)
[2024-11-24] MEDS: ASPIRIN 81 MG ECTAB PO SCH (08:06)
[2024-11-24] MEDS: THIAMINE HCL 100 MG TAB PO SCH (08:06)
[2024-11-24] MEDS: FOLIC ACID 1 MG TAB PO SCH (08:07)
[2024-11-24 08:24] LABS: Estimated Average Glucose 114 mg/dl; Hemoglobin A1C 5.6 % (4.5-5.6)
--- NOTE | 2024-11-24 09:12 | XCELERA ---
[id number] [id number]
--- NOTE | 2024-11-24 11:20 | Pharmacy Report ---
- Date of Service November 24, 2024 - Pharmacy CVA/TIA Medication Review Medications to Prevent Stroke handout has been added to the patients discharge packet. Antiplatelet(s) * ASA 81 mg/day + clopidogrel 75 mg/day x 3 weeks, then asa monotherapy Cholesterol * High intensity statin: atorvastatin 80 mg daily DVT Prophylaxis * SCD knee Therapeutic Anticoagulation * No history of Afib/Aflutter noted; considering outpatient cardiac monitoring Type 2 Diabetes * Patient does not have T2DM
[2024-11-24 12:49] VITALS: TEMP 97.9; O2SAT 93
[2024-11-24] MEDS ORDERED: STROKE PATIENT DISCHARGE STA (15:14)
--- NOTE | 2024-11-24 15:15 | Discharge Summary ---
Discharge Summary Date of Service November 24, 2024 Principal Dx & Hospital Course #1 = Principal Diagnosis (1) Acute stroke due to ischemia: This patient is a 59-year-old male with a history of alcohol use disorder drinking 6-8 beers/day, current smoker, COPD, recent Lyme disease, alcohol induced fatty liver, marijuana use, who presents to the ER with 1 week of right- sided numbness. He was found to have a left subacute ischemic thalamic and interior capsule stroke #Acute to subacute ischemic left thalamic and interior capsule stroke- symptoms ongoing for approximately 1 week and stroke was showing up on CAT scan noncontrast on arrival. This is probably a subacute left thalamic infarct experienced approximately 1 week ago. Neurology consulted-recommends dual antiplatelet therapy in the form of Plavix and aspirin x 3 weeks followed by aspirin alone. CT angiogram head and neck negative. MRI brain confirms stroke. Echocardiogram with bubble study is negative, no events on telemetry. Lipid panel excellent, HgbA1c normal at 5.6%. He does have elevated blood pressures and is a smoker as well as a heavy alcohol user. -Start DAPT with aspirin and Plavix x 21 days then aspirin alone indefinitely - Started atorvastatin 80 mg daily - Start lisinopril 5 mg p.o. daily for BP control - Counseled on smoking cessation-he is contemplating this - Counseled on alcohol cessation and he is committed to doing this - Recommend 30-day cardiac event monitor after discharge-this is being arranged by nurse navigator - Follow-up with neurology within 2 to 3 weeks after discharge #Hypertension-BPs elevated at home and here. - Start lisinopril 5 mg p.o. once daily - Follow-up with PCP #Positive Lyme screen. The patient was diagnosed with Lyme disease and [place] spotted fever per him in September of this year. He was treated with a 21- day course of doxycycline. He completed that course and there is no further need for treatment #COPD without acute exacerbation/current smoker-no acute issues - Continue home inhalers. No nicotine patch due to possible vasoconstriction with a acute stroke - Counseled on cessation of smoking #Alcohol use disorder/fatty liver-drinks 6-8 beers per day. He has gone through withdrawal before with "the shakes" but never had seizures. He never required any Ativan while here - Counseled on cessation on discharge and he knows what to watch out for as far as withdrawal DVT prophylaxis-SCDs Disposition-discharge to home Notes For Next Care Provider Needs follow-up on 30-day event monitor Needs follow-up lipid panel and LFTs after starting high intensity statin in 6 weeks Medication Changes From Visit See list Admission HPI Per Admitting Provider This is a 59-year-old male who apparently was having a verbal altercation with his significant other approximately a week ago. He had a sudden acute onset of paresthesias and numbness of the right side of his body including upper and lower extremity. Per the patient he presented to [facility] emergency department. Per the patient he initially reported an MRI once his mother presented to the ER today it was concluded that the patient probably had a CT of the head a week ago at the [facility] which was negative. According to the patient he "got pissed off and left". He states that they told him they could not find his problem. We have requested to obtain records from the [facility] to determine what was done and what the recommendations were precisely. At any rate, the patient symptomatology has not worsened and has not improved. Therefore he is presented to the [facility] ER for further evaluation and treatment today. CTAs of the head and neck were negative for critical stenosis or thrombosis. CT of the brain was suspicious for a subacute infarct in the left thalamus. MRI of the brain in the ER confirmed a subacute infarct. The patient received aspirin in the ER. We requested consultation with neurology. They are recommending dual antiplatelet therapy which has been initiated with Plavix and aspirin as well as high-dose statin therapy. Will obtain a echocardiogram. Lipid panel. PT and OT consultation and neurology consultation. Patient will be on the stroke protocol. In addition the patient tested positive in September for Lyme disease and [place] spotted fever. Per the patient he took a 21-day course of doxycycline. The patient was retested for Lyme disease in the ER today his Lyme screen was positive with a positive IgM. I have contacted infectious disease on-call and spoke with Dr. Villar -at this time she is not recommending any further antimicrobial therapy for possible Lyme disease as the IgM can stay positive for quite some time. In addition the nicotine patch was initially ordered for the patient. The ER with discussed with the patient that nicotine is a vasoconstrictor and would be relatively contraindicated with a subacute stroke that could possibly make things worse and we will discontinue that and the patient voices understanding. In addition the patient drinks 6-8 beers per day. His last drink was last evening. His alcohol level today is 0. He states that he has "had the shakes" before when not drinking but never had any withdrawal seizures. We have ordered alcohol withdrawal protocol. He states that Ativan "knocks him out" and prefers not to take that. Past medical history: COPD, Lyme disease, [place] spotted fever, fatty liver disease. Past surgical history: Bunionectomy, tonsillectomy adenoidectomy, tooth extraction. Social history: The patient lives with his girlfriend. Smokes a pack and a half of cigarettes per day. Drinks 6-8 beers per day last drink was last evening. He also uses recreational marijuana. He is self-employed as a information security specialist. Family medical history: Positive for cerebrovascular disease. Discharge Exam Constitutional WD/WN, vitals as above Eyes PERRL, conjunctivae normal, anicteric sclerae ENMT external ear and nose normal, oropharynx normal Neck trachea midline, no thyromegaly Respiratory normal respiratory effort, lungs clear to auscultation Cardiovascular RRR, no murmur, no edema Chest (Breasts) Chest: normal inspection of chest Gastrointestinal (Abdomen) normal bowel sounds, soft, nontender, no hepatosplenomegaly Musculoskeletal Extremities: extremities normal to inspection; no cyanosis and no clubbing Skin no rashes, warm and dry Neurologic moves all extremities and awake; no focal motor deficits Sensory deficits on right side of face as well as right upper and lower extremities with decreased sensation to light touch Psychiatric A+Ox3, euthymic affect Lymphatic no lymphedema Discharge Plan Discharge Items Patient Disposition: Home - Self-Care Reason For Visit: CVA Discharge Diagnosis: Acute ischemic stroke Hypertension Condition on Discharge: Fair Activity: Resume your previous activity Non-emergency contact: Primary Care Provider and Neurologist Call non-emergency contact if: you have any medication questions and your symptoms worsen Follow-up/Referrals: Hector Panchal MD [Physician] - (The neurology office will contact you for your follow-up appointment in 2 to 3 weeks.) Kayce Javier NP [Primary Care Provider] - (Please follow up within 1-2 weeks) Diet: Heart Healthy Addtl Attending Provider Instructions: You were admitted with right-sided numbness that was found to be caused by a stroke. It is very important that you quit smoking and drinking alcohol. You will need to take a baby aspirin and Plavix as blood thinners to prevent strokes for the next 3 weeks. After that, just continue taking a baby aspirin every day. You are also started on a cholesterol medicine called atorvastatin to help prevent future strokes. You will need to wear a heart monitor for 30 days-the cardiology office will contact you and arrange this to get sent to your house to wear. This is looking for irregular heart rhythms that can cause strokes. It is also important to control your blood pressure. You will be started on a medication called lisinopril to help with your blood pressure. Risk Factors for Stroke: You can reduce your chances of stroke by working with your medical provider to adopt a healthy lifestyle. Some specific ways to lower your chance of stroke are: * If you are a smoker, now is the time to stop smoking cigarettes * If you are diabetic, improve the control of your blood sugars * Avoid excessive amounts of alcohol * Control high blood pressure * Lose weight if you are overweight * Be sure to lead an active lifestyle * Eat a healthy diet low in salt, cholesterol and fat You should know about other risk factors for stroke that you are unable to control. These include: * Age 55 years or older * Male gender * Certain racial groups: , or / * Family History of Stroke, Mini stroke or Heart Attack * Sickle Cell Disease Follow Up: It is important for you to keep your follow up appointments with your medical provider. Who to Call and When: Medical Emergencies: Call 911 immediately if you experience any of the following warning signs and symptoms of Stroke: * Sudden numbness or weakness of the face, arm or leg, especially on one side of the body * Sudden confusion, trouble speaking or understanding * Sudden trouble seeing in one or both eyes * Sudden trouble walking, dizziness, loss of balance or coordination * Sudden severe headache with no cause Do not delay calling 911 if you experience any warning signs or symptoms of a stroke. Delay in seeking medical attention may affect what treatments can be given to you. . Pending Studies at Discharge: No Stand-Alone Forms: [facility] [employer], Smoking Cessation, Medications to Prevent Stroke Medications and DC Order Prescriptions: New clopidogrel 75 mg Tablet 75 mg PO QAM Qty: 19 0RF atorvastatin 80 mg tablet 80 mg PO DAILY Qty: 30 0RF lisinopril 5 mg tablet 5 mg PO DAILY Qty: 30 0RF Continued fluticasone propion-salmeterol 250-50 mcg/dose blister with device 1 inh INHALATION BID aspirin 81 mg Tablet,Delayed Release (Dr/Ec) 81 mg PO DAILY albuterol sulfate 90 mcg/actuation HFA aerosol inhaler 2 puff INHALATION Q4 PRN (Reason: sob) Vitamin D3 1 cap PO DAILY Rx Instructions: otc unknown dose Discharge Orders: Discharge Order (Routine); Ordered 11/24/24 Ordered By: Marcia Holguin Admission Data Admit Date/Time: 11/23/24 15:29 Attending Provider: Marcia Holguin Admit Provider: Arnie Dsouza Primary Care Provider: Kayce Javier Other Providers: Hector Panchal Hospital Stay Data Consultations 11/23/24 15:25 Consult Neurology Routine Diagnostic Imagining Performed 11/23/24 10:16 CT angio head w con Stat CT angio neck with con Stat CT head/brain wo con Stat 11/23/24 12:26 MR brain wo/w con Stat Echocardiogram Pending Results Patient Have Any Pending Studies at Discharge: No Discharge Instructions Given to Patient (Per Discharging Provider) You were admitted with right-sided numbness that was found to be caused by a stroke. It is very important that you quit smoking and drinking alcohol. You will need to take a baby aspirin and Plavix as blood thinners to prevent strokes for the next 3 weeks. After that, just continue taking a baby aspirin every day. You are also started on a cholesterol medicine called atorvastatin to help prevent future strokes. You will need to wear a heart monitor for 30 days-the cardiology office will contact you and arrange this to get sent to your house to wear. This is looking for irregular heart rhythms that can cause strokes. It is also important to control your blood pressure. You will be started on a medication called lisinopril to help with your blood pressure. Risk Factors for Stroke: You can reduce your chances of stroke by working with your medical provider to adopt a healthy lifestyle. Some specific ways to lower your chance of stroke are: * If you are a smoker, now is the time to stop smoking cigarettes * If you are diabetic, improve the control of your blood sugars * Avoid excessive amounts of alcohol * Control high blood pressure * Lose weight if you are overweight * Be sure to lead an active lifestyle * Eat a healthy diet low in salt, cholesterol and fat You should know about other risk factors for stroke that you are unable to control. These include: * Age 55 years or older * Male gender * Certain racial groups: , or / * Family History of Stroke, Mini stroke or Heart Attack * Sickle Cell Disease Follow Up: It is important for you to keep your follow up appointments with your medical provider. Who to Call and When: Medical Emergencies: Call 911 immediately if you experience any of the following warning signs and symptoms of Stroke: * Sudden numbness or weakness of the face, arm or leg, especially on one side of the body * Sudden confusion, trouble speaking or understanding * Sudden trouble seeing in one or both eyes * Sudden trouble walking, dizziness, loss of balance or coordination * Sudden severe headache with no cause Do not delay calling 911 if you experience any warning signs or symptoms of a stroke. Delay in seeking medical attention may affect what treatments can be given to you. . Total Time Total Time Spent Total Time Spent (In Minutes): 35 minutes Total Time Includes: Examination of the Patient, Discharge Planning and Medication Reconciliation Coding Level of Care Code 18896 INP/OBS DISCH >30 MIN Diagnoses Acute stroke due to ischemia I63.9
[2024-11-24 15:20] VITALS: BP 151/78; PULSE 60
[2024-11-25 12:08] LABS: Marijuana Quant, GCMS Urine 1123 ng/mL (<5)
[2024-11-25 18:46] LABS: Babesia microti DNA Not Detected (Not Detected)
--- NOTE | 2024-11-28 10:06 | Pharmacy Report ---
Pharmacist Stroke Counseling - Date of Service November 28, 2024 - Scope: Pharmacy has been consulted to provide medication discharge counseling for this patient admitted with ischemic stroke as per the Pharmacist Discharge Counseling for Stroke Patients Protocol. - Medications on Discharge: Home Medications Medication Instructions Recorded Confirmed Vitamin D3 1 cap PO DAILY 11/23/24 11/23/24 albuterol sulfate 90 mcg/actuation 2 puff inhalation Q4 PRN sob 11/23/24 11/23/24 aerosol inhaler aspirin 81 mg tablet,delayed 81 mg PO DAILY 11/23/24 11/23/24 release fluticasone 250 mcg-salmeterol 50 1 inh inhalation BID 11/23/24 11/23/24 mcg/dose blistr powdr for inhalation New Rx's Medication Instructions Recorded atorvastatin 80 mg tablet 80 mg PO DAILY #30 tabs 11/24/24 clopidogrel 75 mg tablet 75 mg PO QAM #19 tabs 11/24/24 lisinopril 5 mg tablet 5 mg PO DAILY #30 tabs 11/24/24 - Action: The above medications, specifically ones for stroke treatment/prophylaxis, have been reviewed in detail with the patient and/or patient floor representative(s) prior to discharge. This includes indication, common adverse reactions, drug interactions, and medication administration. Medication counseling has been employed using the teach-back method to ensure understanding. - Outcome: The patient and/or patient floor representative(s) have demonstrated understanding of the medications. Thank you for allowing pharmacy to be involved in the care of this patient. Please call [phone] with any additional questions
== END 2024-11-24 16:04 | disposition home or self-care (01) | DRG 66 ==
LOC: ED 09:55 → SUATTDRO 15:29 → INTOOBSV 15:29 → 2E 15:29